=== PATIENT | male | born 1985 | race American Indian/Alaskan Native ===

== ENCOUNTER 2017-01-06 22:33 | Emergency (ER) | payer OTHER ==
--- NOTE | 2017-01-07 00:47 | Emergency Department Report ---
<BARB DELUCA I. - Last Filed: 01/07/17 00:44> ED Psych HPI - General Chief Complaint: Psych Stated Complaint: MH EVAL Time Seen by Provider: 01/07/17 00:29 Source: EMS Mode of arrival: Ambulatory - History of Present Illness Initial Comments: Pt is a 31 yr old male, poor historia, who presents to the ED for "voluntary admission". Pt has a history of PTSD and admits to drinking alcohol over the past few days. Pt will not give more history, but as per triage sheet, patient denied SI/HI. Pt stated he just wanted to get away from his home situation. No other information provided or obtainable - Related Data Allergies Allergy/AdvReac Type Severity Reaction Status Date / Time No Known Allergies Allergy Verified 01/07/17 04:35 ED Review of Systems ROS: Stated complaint: MH EVAL Other details as noted in HPI Comment: All other systems reviewed and negative ED Past Medical Hx - Past Medical History Previous Medical History?: Yes Hx Psychiatric Treatment: Yes (Hx of PTSD) - Surgical History Past Surgical History?: Yes Additional Surgical History: Lazer eye surgery in 2011 ED Physical Exam - General Limitations: No Limitations, Other (intoxicated) General appearance: in no apparent distress, appears intoxicated - Head Head exam: Present: atraumatic, normocephalic - Eye Eye exam: Present: normal appearance, PERRL, EOMI, conjunctival injection Pupils: Present: normal accommodation - ENT ENT exam: Present: normal exam, mucous membranes moist - Neck Neck exam: Present: normal inspection - Respiratory Respiratory exam: Present: normal lung sounds bilaterally. Absent: respiratory distress - Cardiovascular Cardiovascular Exam: Present: regular rate, normal rhythm. Absent: systolic murmur, diastolic murmur, rubs, gallop - GI/Abdominal GI/Abdominal exam: Present: soft, normal bowel sounds - Rectal Rectal exam: Present: deferred - Extremities Exam Extremities exam: Present: normal inspection - Back Exam Back exam: Present: normal inspection - Neurological Exam Neurological exam: Present: CN II-XII intact. Absent: motor sensory deficit - Psychiatric Psychiatric exam: Present: flat affect, other (intoxicated) - Skin Skin exam: Present: warm, dry, intact, normal color. Absent: rash ED Course Vital Signs 01/06/17 01/06/17 01/07/17 22:42 22:53 06:54 Temperature 98.3 F 98 F Pulse Rate 100 H 96 H Respiratory 18 18 18 Rate Blood Pressure 129/92 Blood Pressure 96/55 [Left] O2 Sat by Pulse 96 96 98 Oximetry Critical care attestation.: If time is entered above; I have spent that time in minutes in the direct care of this critically ill patient, excluding procedure time. ED Disposition Clinical Impression: Alcohol abuse Disposition: DC-01 TO HOME OR SELFCARE Condition: Stable Instructions: Abuse of Alcohol (ED) Referrals: PRIMARY CARE, [Primary Care Provider] - 3-5 Days <FABIANA CARD - Last Filed: 01/07/17 09:48> ED Medical Decision Making - Lab Data Laboratory Results - last 24 hr 01/07/17 01/07/17 00:51 02:42 Urine Opiates Screen Presumptive negative Urine Methadone Screen Presumptive negative Ur Barbiturates Screen Presumptive negative Ur Phencyclidine Scrn Presumptive negative Ur Amphetamines Screen Presumptive negative U Benzodiazepines Scrn Presumptive negative Urine Cocaine Screen Presumptive negative U Marijuana (THC) Screen Presumptive negative Drugs of Abuse Note Disclamer Plasma/Serum Alcohol 0.11 H ED Disposition Is pt being admited?: No Does the pt Need Aspirin: No Time of Disposition: 09:48
[2017-01-07 02:49] LABS: Urine Drugs of Abuse Note Disclamer
[2017-01-07 09:53] VITALS: BP 131/89
== END 2017-01-07 09:57 | disposition home or self-care (01) ==
LOC: ED 22:33
DX: F10.10 Alcohol abuse, uncomplicated (principal); F43.10 Post-traumatic stress disorder, unspecified
CPT/HCPCS: 36415; 80307; 99284; G0480; 80320

== ENCOUNTER 2017-10-23 07:26 | Emergency (ER) | payer OTHER ==
[2017-10-23 08:23] VITALS: BP 132/78
--- NOTE | 2017-10-23 09:31 | XRay Report ---
RIGHT TIBIA/FIBULA: Trauma, swelling. AP and lateral views of the right tibia/fibula demonstrate normal mineralization and contours for this patient's age. No destructive changes are noted and the adjacent soft tissues are normal. IMPRESSION: Normal right tibia/fibula.
[2017-10-23] MEDS ORDERED: NORCO 10/325 PO ONE (10:10)
[2017-10-23] MEDS ORDERED: ZOFRAN ODT PO ONE (10:10)
[2017-10-23] MEDS ORDERED: MOTRIN PO ONE (10:10)
--- NOTE | 2017-10-23 10:49 | Emergency Department Report ---
ED Lower Extremity HPI - General Chief Complaint: Extremity Injury, Lower Stated Complaint: knee pain Time Seen by Provider: 10/23/17 10:09 Source: patient Mode of arrival: Ambulatory Limitations: No Limitations - History of Present Illness Initial Comments: 32-year-old male past medical history none presents with complaint of right knee pain. Patient states that while chasing his dog outside of his home last night he accidentally tripped in a hole in his yard. Patient states that he felt a pop in his right knee. Has been experiencing severe pain on his right lateral knee joint since fall last night. Patient is awake alert and oriented 3 fully lucid not in acute distress. Patient states that pain occurs when he extends his right leg. Denies sustaining any lacerations or head injuries. Patient states it is difficult to walk secondary to pain in his right knee. Patient states it is likely hyperextended his knee. MD Complaint: knee injury (right knee injury) -: Last night Injury: Knee: Right Type of Injury: hyperextension, other Severity scale (0 -10): 5 Associated Symptoms: snap/pop sensation, swelling, unable to bear weight - Related Data Previous Rx's Medication Instructions Recorded Last Taken Type Acetaminophen with Codeine 1 each PO Q8H PRN #8 tablet 10/23/17 Unknown Rx [Tylenol with Codeine #3 Tablet] Ibuprofen [Motrin] 800 mg PO Q8HR PRN #25 tablet 10/23/17 Unknown Rx Allergies Allergy/AdvReac Type Severity Reaction Status Date / Time No Known Allergies Allergy Verified 01/07/17 04:35 ED Review of Systems ROS: Stated complaint: knee pain Other details as noted in HPI Constitutional: denies: chills, fever Eyes: denies: eye pain, eye discharge, vision change ENT: denies: ear pain, throat pain Respiratory: denies: cough, shortness of breath, wheezing Cardiovascular: denies: chest pain, palpitations Endocrine: no symptoms reported Gastrointestinal: denies: abdominal pain, nausea, diarrhea Genitourinary: denies: urgency, dysuria Musculoskeletal: as per HPI, arthralgia. denies: back pain, joint swelling Skin: denies: rash, lesions Neurological: denies: headache, weakness, paresthesias Psychiatric: denies: anxiety, depression Hematological/Lymphatic: denies: easy bleeding, easy bruising ED Past Medical Hx - Past Medical History Previous Medical History?: Yes Hx Psychiatric Treatment: Yes (Hx of PTSD) - Surgical History Past Surgical History?: Yes Additional Surgical History: Lazer bilateral eye surgery in 2012 - Social History Smoking Status: Current Every Day Smoker Substance Use Type: None - Medications Home Medications: Home Medications Medication Instructions Recorded Confirmed Last Taken Type Acetaminophen with Codeine 1 each PO Q8H PRN #8 tablet 10/23/17 Unknown Rx [Tylenol with Codeine #3 Tablet] Ibuprofen [Motrin] 800 mg PO Q8HR PRN #25 tablet 10/23/17 Unknown Rx ED Physical Exam - General Limitations: No Limitations General appearance: alert, in no apparent distress - Head Head exam: Present: atraumatic, normocephalic - Eye Eye exam: Present: normal appearance, PERRL, EOMI - ENT ENT exam: Present: mucous membranes moist - Neck Neck exam: Present: normal inspection - Respiratory Respiratory exam: Present: normal lung sounds bilaterally. Absent: respiratory distress - Cardiovascular Cardiovascular Exam: Present: regular rate, normal rhythm. Absent: systolic murmur, diastolic murmur, rubs, gallop - GI/Abdominal GI/Abdominal exam: Present: soft, normal bowel sounds - Rectal Rectal exam: Present: deferred - Extremities Exam Extremities exam: Present: normal inspection - Expanded Lower Extremity Exam Right Hip exam: Present: normal inspection, full ROM Upper Leg exam: Present: normal inspection, full ROM Knee exam: Present: normal inspection, full ROM (flexion and extension intact, pain with full knee extension), full knee extension Lower Leg exam: Present: normal inspection, full ROM Ankle exam: Present: normal inspection, full ROM Foot/Toe exam: Present: normal inspection, full ROM Neuro vascular tendon exam: Present: no vascular compromise - Back Exam Back exam: Present: normal inspection - Neurological Exam Neurological exam: Present: alert, oriented X3, CN II-XII intact, abnormal gait - Psychiatric Psychiatric exam: Present: normal affect, normal mood - Skin Skin exam: Present: warm, dry, intact, normal color. Absent: rash ED Course Vital Signs 10/23/17 08:05 Temperature 98 F Pulse Rate 74 Respiratory 18 Rate Blood Pressure 132/78 O2 Sat by Pulse 99 Oximetry ED Lower Extremity MDM - Medical Decision Making A/P: Right knee sprain, possible ligament injury 1- xrays show no fractures. Good distal pulses and extremity on exam good distal sensation. Range of motion right knee intact. 2- follow-up with orthopedics 3-crutches, nonweightbearing for now, right knee immobilizer 4- Motrin when necessary Critical care attestation.: If time is entered above; I have spent that time in minutes in the direct care of this critically ill patient, excluding procedure time. ED Disposition Clinical Impression: Fall injury while running Right knee sprain Qualifiers: Encounter type: initial encounter Involved ligament of knee: lateral collateral ligament Qualified Code(s): S83.421A - Sprain of lateral collateral ligament of right knee, initial encounter Disposition: TO HOME OR SELFCARE Is pt being admited?: No Does the pt Need Aspirin: No Condition: Stable Instructions: Knee Pain (ED), Crutch Instructions (ED) Prescriptions: Acetaminophen with Codeine [Tylenol with Codeine #3 Tablet] 1 each PO Q8H PRN # 8 tablet PRN Reason: Pain Ibuprofen [Motrin] 800 mg PO Q8HR PRN #25 tablet PRN Reason: Pain Referrals: SIMONE ADAME MD [Staff Physician] - 3-5 Days [facility] [Provider Group] - 3-5 Days Forms: Accompanied Note, Work/School Release Form(ED) Time of Disposition: 11:43
--- NOTE | 2017-10-23 11:12 | XRay Report ---
RIGHT KNEE, 2 views: History: Right knee pain. The bony architecture is intact without evidence of fracture or dislocation. No significant soft tissue abnormality is seen. IMPRESSION: Normal right knee.
== END 2017-10-23 12:00 | disposition home or self-care (01) ==
LOC: ED 07:26
DX: S83.421A Sprain of lateral collateral ligament of right knee, initial encounter (principal); F17.200 Nicotine dependence, unspecified, uncomplicated; W01.0XXA Fall on same level from slipping, tripping and stumbling without subsequent striking against object, initial encounter; Y93.02 Activity, running; Y92.89 Other specified places as the place of occurrence of the external cause; Y99.8 Other external cause status
CPT/HCPCS: Q0162

== ENCOUNTER 2018-01-02 21:06 | Emergency (ER) | payer OTHER ==
[2018-01-02 21:11] VITALS: BP 122/77
[2018-01-03] MEDS ORDERED: PERCOCET 5/325 PO ONE (01:52)
[2018-01-03] MEDS ORDERED: PERCOCET 5/325 ONE (02:00)
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
[2018-01-03 02:43] LABS: Basophils # (Auto) 0.1 K/mm3 (0.0-0.1); Basophils % (Auto) 0.7 % (0.0-1.8); Eosinophils # (Auto) 0.6 K/mm3 (0.0-0.4); Eosinophils % (Auto) 5.7 % (0.0-4.3); Hematocrit 43.3 % (35.5-45.6); Hemoglobin 14.5 gm/dl (11.8-15.2); Lymphocytes # (Auto) 3.4 K/mm3 (1.2-5.4); Lymphocytes % (Auto) 34.9 % (13.4-35.0); Mean Corpuscular HGB Conc 33 % (32-34); Mean Corpuscular Hemoglobin 30 pg (28-32); Mean Corpuscular Volume 89 fl (84-94); Monocytes # (Auto) 0.9 K/mm3 (0.0-0.8); Monocytes % (Auto) 9.1 % (0.0-7.3); Platelet Count 217 K/mm3 (140-440); Red Blood Count 4.89 M/mm3 (3.65-5.03); Red Cell Distribution Width 14.4 % (13.2-15.2)
[2018-01-03 03:21] LABS: Alanine Aminotransferase 13 units/L (7-56); Albumin 3.8 g/dL (3.9-5); Calcium 9.4 mg/dL (8.4-10.2); Hemolysis Index 40
--- NOTE | 2018-01-03 04:13 | Cat Scan Report ---
FINAL REPORT EXAM: CT LOWER EXTREMITY LT WO CON HISTORY: swelling and redness to the left leg TECHNIQUE: Routine axial imaging was obtained of the left tibia-fibula extending from just above the knee through the ankle without IV contrast with sagittal and coronal reconstructions. FINDINGS: Best seen on the parasagittal reconstructions (series 300 and images 81-84) is a nondisplaced linear hairline fracture of the posterior cortex of the midshaft of the tibia. No additional fractures are seen. The soft tissues reveal nonspecific reticulation of the subcutaneous fat around the distal calf and along the pretibial soft tissues. There is mild subcutaneous edema in the pretibial soft tissues. There is no evidence of abscess. The ankle and knee joints appear well maintained. IMPRESSION: Nonspecific subcutaneous edema involving the mid to distal shaft of the calf with small amount of fluid suggesting edema/cellulitis. No evidence of abscess. Nondisplaced linear hairline fracture along the posterior cortical margin of the proximal shaft of the tibia seen best on the parasagittal reconstructions
[2018-01-03 04:24] LABS: BUN/Creatinine Ratio 17; Blood Urea Nitrogen 15 mg/dL (9-20)
== END 2018-01-03 04:40 | disposition home or self-care (01) ==
LOC: ED 21:06
DX: S82.102A Unspecified fracture of upper end of left tibia, initial encounter for closed fracture (principal); F17.200 Nicotine dependence, unspecified, uncomplicated; Z91.018 Allergy to other foods; X58.XXXA Exposure to other specified factors, initial encounter; Y93.89 Activity, other specified; Y99.8 Other external cause status; Y92.89 Other specified places as the place of occurrence of the external cause
CPT/HCPCS: 36415; 80053; 82550; 85025